=== PATIENT | female | born 1940 | race African-American/Black ===

== ENCOUNTER 2020-11-28 14:08 | Emergency (ER) | payer OTHER ==
[~2020-11-28] VITALS: Ht 175.3 cm; Wt 72.6 kg
[2020-11-28] MEDS ORDERED: ACETAMINOPHEN ES 500 MG TABLET PO ONE (14:30)
[2020-11-28 14:49] LABS: BASOPHILS % (AUTO) 0.6 % (0.0-2.0); EOSINOPHILS # (AUTO) 0.1 K/uL (0.0-0.7); EOSINOPHILS % (AUTO) 1.7 % (0.0-7.0); HEMATOCRIT 37.6 % (31.2-41.9); HEMOGLOBIN 12.2 g/dL (10.9-14.3); LYMPHOCYTES # (AUTO) 1.1 K/uL (20.0-40.0); LYMPHOCYTES % (AUTO) 15.2 % (20.5-51.5); MEAN CORPUSCULAR HEMOGLOBIN 29.3 uug (24.7-32.8); MEAN CORPUSCULAR HGB CONC 33 g/dL (32.3-35.6); MEAN CORPUSCULAR VOLUME 90.2 fL (75.5-95.3); MONOCYTES # (AUTO) 0.5 K/uL (2.0-10.0); MONOCYTES % (AUTO) 6.6 % (0.0-11.0); NEUTROPHILS # (AUTO) 5.7 K/uL (1.8-8.9); NEUTROPHILS % (AUTO) 75.9 % (38.5-71.5); PLATELET COUNT (AUTO) 711 K/uL (179-408); RED BLOOD CELL COUNT(AUTO) 4.17 MIL/uL (3.63-4.92); WHITE BLOOD COUNT (AUTO) 7.5 K/uL (3.8-11.8)
[2020-11-28] MEDS ORDERED: ACETAMINOPHEN ES 500 MG TABLET ONE (14:51)
[2020-11-28 14:56] LABS: CARBON DIOXIDE 27 mmol/L (21-32); CHLORIDE 105 mmol/L (98-107); CREATININE 0.6 mg/dL (0.6-1.3); GLUCOSE 103 mg/dL (74-106); UREA NITROGEN, BLOOD 11 mg/dL (7-18)
[2020-11-28 15:01] LABS: ALANINE AMINOTRANSFERASE 18 U/L (14-59); ALKALINE PHOSPHATASE 107 U/L (50-136); ASPARTATE AMINOTRANSFERASE 19 U/L (15-37); BILIRUBIN,DIRECT 0.1 mg/dL (0.0-0.2); BILIRUBIN,TOTAL 0.3 mg/dL (0.2-1.0); TOTAL PROTEIN, SERUM 6.7 g/dL (6.4-8.2)
== END 2020-11-28 16:15 | disposition home or self-care (01) ==
LOC: ER 14:08
DX: S00.83XA Contusion of other part of head, initial encounter (principal); W01.0XXA Fall on same level from slipping, tripping and stumbling without subsequent striking against object, initial encounter; Y92.481 Parking lot as the place of occurrence of the external cause; Z88.0 Allergy status to penicillin; Z88.2 Allergy status to sulfonamides; Z96.641 Presence of right artificial hip joint; D47.3 Essential (hemorrhagic) thrombocythemia; M50.30 Other cervical disc degeneration, unspecified cervical region; M48.02 Spinal stenosis, cervical region
CPT/HCPCS: 36415; 70030-TC; 70450; 70486; 71045; 72125; 85025; 93005; A4663; A9150

== ENCOUNTER 2024-05-09 13:51 | Emergency (ER) | payer OTHER ==
[~2024-05-09] VITALS: Ht 175.3 cm; Wt 68.0 kg
[2024-05-09 14:01] VITALS: O2SAT 95
== END 2024-05-09 14:43 | disposition home or self-care (01) ==
LOC: ER 13:52
DX: S30.0XXA Contusion of lower back and pelvis, initial encounter (principal); D75.839 Thrombocytosis, unspecified; Z96.641 Presence of right artificial hip joint; Z88.0 Allergy status to penicillin; Z88.2 Allergy status to sulfonamides; Z88.5 Allergy status to narcotic agent; W18.39XA Other fall on same level, initial encounter; Y93.89 Activity, other specified; Y92.89 Other specified places as the place of occurrence of the external cause; Y99.8 Other external cause status
CPT/HCPCS: A4606; A4663

== ENCOUNTER 2024-10-10 11:09 | Inpatient (IN) | payer OTHER ==
[~2024-10-10] VITALS: Ht 175.3 cm; Wt 58.5 kg
[2024-10-10 12:15] LABS: BASOPHILS % (AUTO) 0.8 % (0.0-2.0); EOSINOPHILS # (AUTO) 0.1 K/uL (0.0-0.7); EOSINOPHILS % (AUTO) 1.4 % (0.0-7.0); HEMATOCRIT 34.5 % (31.2-41.9); HEMOGLOBIN 11.7 g/dL (10.9-14.3); LYMPHOCYTES # (AUTO) 1.1 K/uL (0.8-4.8); LYMPHOCYTES % (AUTO) 17.6 % (20.5-51.5); MEAN CORPUSCULAR HEMOGLOBIN 29.9 uug (24.7-32.8); MEAN CORPUSCULAR HGB CONC 34 g/dL (32.3-35.6); MEAN CORPUSCULAR VOLUME 87.9 fL (75.5-95.3); MONOCYTES # (AUTO) 0.5 K/uL (0.1-1.30); MONOCYTES % (AUTO) 8.1 % (0.0-11.0); NEUTROPHILS # (AUTO) 4.6 K/uL (1.8-8.9); NEUTROPHILS % (AUTO) 72.1 % (38.5-71.5); PLATELET COUNT (AUTO) 651 K/uL (179-408); RED BLOOD CELL COUNT(AUTO) 3.92 MIL/uL (3.63-4.92); RED CELL DISTRIBUTION WIDTH 16.6 % (12.3-17.7); WHITE BLOOD COUNT (AUTO) 6.3 K/uL (3.8-11.8)
[2024-10-10 12:17] LABS: DIFFERENTIAL COMMENT 1
[2024-10-10 12:25] LABS: CALCIUM 9.2 mg/dL (8.5-10.1); CARBON DIOXIDE 30 mmol/L (21-32); CHLORIDE 102 mmol/L (98-107); CREATININE 0.5 mg/dL (0.6-1.3); GLUCOSE 95 mg/dL (74-106); POTASSIUM 3.7 mmol/L (3.5-5.1); SODIUM SERUM 139 mmol/L (136-145); UREA NITROGEN, BLOOD 9 mg/dL (7-18)
[2024-10-10 12:30] LABS: ALANINE AMINOTRANSFERASE 18 U/L (14-59); ALBUMIN 3.4 g/dL (3.4-5.0); ALKALINE PHOSPHATASE 77 U/L (50-136); ASPARTATE AMINOTRANSFERASE 25 U/L (15-37); BILIRUBIN,DIRECT 0.2 mg/dL (0.0-0.2); BILIRUBIN,TOTAL 0.5 mg/dL (0.2-1.0); LIPASE 23 U/L (16-77); TOTAL PROTEIN, SERUM 6.6 g/dL (6.4-8.2)
[2024-10-10] MEDS: IV NS 1000 ML 1,000 ML IV ONE (12:32)
[2024-10-10] MEDS ORDERED: METOCLOPRAMIDE HCL 10 MG/2 ML VIAL ONE (13:39)
[2024-10-10] MEDS: METOCLOPRAMIDE HCL 10 MG/2 ML VIAL IV ONE (13:41)
[2024-10-10 14:05] LABS: *BILIRUBIN,URIN NEGATIVE (NEGATIVE); *BLOOD, URINE NEGATIVE (NEGATIVE); *CLARITY,URINE CLEAR (CLEAR); *COLOR,URINE YELLOW (YELLOW); *KETONES,URINE NEGATIVE (NEGATIVE); *PROTEIN,URINE NEGATIVE (NEGATIVE); *UROBILINOGEN,URINE 0.2 E.U./dl (NORMAL); LEUKOCYTE ESTERASE ,URINE TRACE (NEGATIVE); NITRITE, URINE NEGATIVE (NEGATIVE); UGLUCOSE NEGATIVE (NEGATIVE)
[2024-10-10 14:07] LABS: BACTERIA,URINE FEW /HPF (NONE SEEN); SQUAMOUS EPITHELIAL CELL,UR FEW /HPF (NONE SEEN)
[2024-10-10] MEDS ORDERED: MORPHINE SULFATE 2 MG/1 ML DISP.SYRIN IV PRN (16:30)
[2024-10-10] MEDS ORDERED: REMEDY ESSENTIAL ZINC PASTE 113 GM TP PRN (16:30)
[2024-10-10] MEDS ORDERED: IV NORMAL SALINE 250 ML IV ONE (16:56)
[2024-10-10] MEDS ORDERED: IOHEXOL 300MG/ML 100 ML INFUS..BTL ONE (16:56)
[2024-10-10] MEDS ORDERED: DIATR MEGLU/DIATRIZOATE SODIUM 30 ML BOTTLE ONE (16:56)
[2024-10-10] MEDS ORDERED: SWABABLE VALVE TRANSFER SET EA MC ONE (16:56)
[2024-10-10 17:03] VITALS: BP 128/81
[2024-10-10] MEDS: CEphaleXIN 250 MG CAPSULE PO SCH (17:50)
[2024-10-10] MEDS: IV D5 1/2 NS 1000 ML 1,000 ML IV PRN (18:32)
[2024-10-10 19:20] VITALS: BP 126/60; TEMP 98.8; O2SAT 97
[2024-10-10] MEDS: ACETAMINOPHEN 325 MG TABLET PO PRN (21:47)
[2024-10-10] MEDS: ENOXAPARIN SODIUM 40 MG/0.4 ML DISP.SYRIN SQ SCH (21:49)
[2024-10-11 06:10] LABS: BASOPHILS % (AUTO) 0.7 % (0.0-2.0); EOSINOPHILS # (AUTO) 0.2 K/uL (0.0-0.7); EOSINOPHILS % (AUTO) 2.9 % (0.0-7.0); HEMATOCRIT 35.4 % (31.2-41.9); HEMOGLOBIN 11.8 g/dL (10.9-14.3); LYMPHOCYTES # (AUTO) 1.1 K/uL (0.8-4.8); LYMPHOCYTES % (AUTO) 19.9 % (20.5-51.5); MEAN CORPUSCULAR HEMOGLOBIN 29.5 uug (24.7-32.8); MEAN CORPUSCULAR HGB CONC 33 g/dL (32.3-35.6); MEAN CORPUSCULAR VOLUME 88.6 fL (75.5-95.3); MONOCYTES # (AUTO) 0.4 K/uL (0.1-1.30); MONOCYTES % (AUTO) 7.3 % (0.0-11.0); NEUTROPHILS # (AUTO) 3.7 K/uL (1.8-8.9); NEUTROPHILS % (AUTO) 69.2 % (38.5-71.5); PLATELET COUNT (AUTO) 563 K/uL (179-408); RED BLOOD CELL COUNT(AUTO) 3.99 MIL/uL (3.63-4.92); RED CELL DISTRIBUTION WIDTH 16.6 % (12.3-17.7); WHITE BLOOD COUNT (AUTO) 5.4 K/uL (3.8-11.8)
[2024-10-11 06:17] LABS: DIFFERENTIAL COMMENT 1
[2024-10-11 06:36] LABS: ALANINE AMINOTRANSFERASE 16 U/L (14-59); ALBUMIN 2.9 g/dL (3.4-5.0); ALKALINE PHOSPHATASE 64 U/L (50-136); ASPARTATE AMINOTRANSFERASE 22 U/L (15-37); BILIRUBIN,TOTAL 0.6 mg/dL (0.2-1.0); CALCIUM 8.9 mg/dL (8.5-10.1); CARBON DIOXIDE 27 mmol/L (21-32); CHLORIDE 107 mmol/L (98-107); CREATININE 0.5 mg/dL (0.6-1.3); GLUCOSE 76 mg/dL (74-106); MAGNESIUM 2.2 mg/dL (1.8-2.4); PHOSPHOROUS 3.4 mg/dL (2.5-4.9); POTASSIUM 3.5 mmol/L (3.5-5.1); SODIUM SERUM 143 mmol/L (136-145); TOTAL PROTEIN, SERUM 5.8 g/dL (6.4-8.2); UREA NITROGEN, BLOOD 8 mg/dL (7-18)
[2024-10-11 06:42] LABS: THYROID STIMULATING HORMONE 0.238 mIU/mL (0.358-3.740)
[2024-10-11] MEDS: PANTOPRAZOLE SODIUM 40 MG TABLET.DR PO SCH (06:42)
[2024-10-11 07:03] VITALS: BP 140/71; TEMP 97.3; O2SAT 98
[2024-10-11 07:09] LABS: CHOLESTEROL 142 mg/dL (<200); HDL CHOLESTEROL 82 mg/dL (40-60); TRIGLYCERIDES 30 MG/DL (30-150)
[2024-10-11] MEDS: ONDANSETRON 4 MG/2 ML VIAL IV PRN (07:16)
[2024-10-11 10:57] VITALS: BP 132/70; TEMP 97.9; O2SAT 99
[2024-10-11] MEDS ORDERED: ONDA8TAB13 PO (11:32)
[2024-10-11] MEDS ORDERED: AMLO10TA59 PO (11:32)
[2024-10-11] MEDS ORDERED: TRAM50TA2 PO (11:32)
[2024-10-11] MEDS ORDERED: TRIA0.2585 PO (11:32)
[2024-10-11] MEDS ORDERED: ENAL5TAB21 PO (11:32)
[2024-10-11] MEDS ORDERED: OMEP40CA21 PO (11:34)
[2024-10-11] MEDS ORDERED: SIMV-46 PO (11:34)
[2024-10-11] MEDS ORDERED: ANAG0.5C3 PO (11:35)
[2024-10-11] MEDS ORDERED: OXYB-58 PO (11:37)
[2024-10-11 15:31] VITALS: BP 111/69; TEMP 98; O2SAT 99
[2024-10-11 19:20] VITALS: BP 130/71; TEMP 98.7; O2SAT 96
[2024-10-12] MEDS ORDERED: ASPI81TA31 PO (00:14)
[2024-10-12 07:26] VITALS: BP 129/72; TEMP 97.6; O2SAT 93
[2024-10-12] MEDS ORDERED: CEPH250C PO (10:06)
[2024-10-12] MEDS ORDERED: ERYT250C69 PO (10:06)
[2024-10-12] MEDS ORDERED: ONDA8TAB13 PO (10:06)
[2024-10-12] MEDS ORDERED: SORB30SO2 PO (12:53)
[2024-10-12] MEDS ORDERED: LACT10SO7 PO (12:53)
== END 2024-10-12 14:55 | disposition home or self-care (01) | DRG 394 ==
LOC: ER 11:24 → MEDSURG3 16:16
PROVIDERS: ADMIT Nurse Practitioner Acute Care; ATTEND Nurse Practitioner Acute Care
DX: K95.89 Other complications of other bariatric procedure (principal); N39.0 Urinary tract infection, site not specified; Z68.1 Body mass index [BMI] 19.9 or less, adult; K31.84 Gastroparesis; Y92.89 Other specified places as the place of occurrence of the external cause; Y83.8 Other surgical procedures as the cause of abnormal reaction of the patient, or of later complication, without mention of misadventure at the time of the procedure; E86.0 Dehydration; D75.839 Thrombocytosis, unspecified; R63.4 Abnormal weight loss; Z90.49 Acquired absence of other specified parts of digestive tract; Z98.84 Bariatric surgery status; Z96.651 Presence of right artificial knee joint; Z96.641 Presence of right artificial hip joint; Z88.5 Allergy status to narcotic agent; Z88.2 Allergy status to sulfonamides; Z88.0 Allergy status to penicillin; K21.9 Gastro-esophageal reflux disease without esophagitis
CPT/HCPCS: 36415; 71045; 73110; 76700; 83605; 83690; 83735; 84100; 84443; 84550; 85025; 85651; 85730; 87077; 87086; A4606; A4663; G0378; J1650; J2405; J2765; J7040; Q9963; Q9967

== ENCOUNTER 2025-04-08 18:02 | Emergency (ER) | payer OTHER ==
[~2025-04-08] VITALS: Ht 172.7 cm; Wt 53.5 kg
[~2025-04-08 18:02] MED LIST: AMLO10TA59 PO; ANAG0.5C3 PO; ASPI81TA31 PO; CEPH250C PO; ENAL5TAB21 PO; ERYT250C69 PO; LACT10SO7 PO; OMEP40CA21 PO; ONDA8TAB13 PO; OXYB-58 PO; SIMV-46 PO; SORB30SO2 PO; TRAM50TA2 PO; TRIA0.2585 PO
[2025-04-08] MEDS ORDERED: TRIA0.252 PO (18:38)
[2025-04-08] MEDS ORDERED: AZIT250T13 PO (18:38)
[2025-04-08] MEDS ORDERED: CLOT15CR27 TP (18:38)
[2025-04-08 19:23] LABS: PLATELET COUNT (AUTO) 718 K/uL (179-408); RED BLOOD CELL COUNT(AUTO) 4.33 MIL/uL (3.63-4.92); RED CELL DISTRIBUTION WIDTH 16.2 % (12.3-17.7); WHITE BLOOD COUNT (AUTO) 7.1 K/uL (3.8-11.8)
[2025-04-08 19:26] LABS: *BILIRUBIN,URIN 1+ (NEGATIVE); *BLOOD, URINE 1+ (NEGATIVE); *COLOR,URINE YELLOW (YELLOW); *KETONES,URINE NEGATIVE (NEGATIVE); *PROTEIN,URINE 1+ (NEGATIVE); *UROBILINOGEN,URINE 0.2 E.U./dl (NORMAL); LEUKOCYTE ESTERASE ,URINE 3+ (NEGATIVE); NITRITE, URINE NEGATIVE (NEGATIVE); UGLUCOSE NEGATIVE (NEGATIVE)
[2025-04-08] MEDS ORDERED: HYDROMORPHONE 1 MG/1 ML DISP.SYRIN ONE (19:29)
[2025-04-08] MEDS ORDERED: ONDANSETRON 4 MG/2 ML VIAL ONE (19:30)
[2025-04-08 19:31] LABS: *CLARITY,URINE SLIGHTLY CLOUDY (CLEAR)
[2025-04-08 19:33] LABS: CREATININE 0.8 mg/dL (0.6-1.3); SODIUM SERUM 143 mmol/L (136-145); UREA NITROGEN, BLOOD 14 mg/dL (7-18)
[2025-04-08 19:38] LABS: ASPARTATE AMINOTRANSFERASE 18 U/L (15-37); TOTAL PROTEIN, SERUM 7.3 g/dL (6.4-8.2)
[2025-04-08] MEDS: HYDROMORPHONE 1 MG/1 ML DISP.SYRIN IV ONE (19:40)
[2025-04-08] MEDS: ONDANSETRON 4 MG/2 ML VIAL IV ONE (19:40)
[2025-04-08] MEDS: IV NORMAL SALINE 1000 ML BAG IV ONE ×2 (19:40→22:27)
[2025-04-08 19:49] LABS: SQUAMOUS EPITHELIAL CELL,UR MANY /HPF (NONE SEEN)
[2025-04-08] MEDS ORDERED: IV NORMAL SALINE 250 ML IV ONE (19:53)
[2025-04-08] MEDS ORDERED: IOHEXOL 300MG/ML 100 ML INFUS..BTL ONE (19:54)
[2025-04-08] MEDS ORDERED: SWABABLE VALVE TRANSFER SET EA MC ONE (19:54)
[2025-04-08] MEDS ORDERED: NITROFURANTOIN/NITROFURAN MAC 100 MG CAPSULE PO ONE ×2 (20:00→20:27)
[2025-04-08] MEDS ORDERED: CEFTRIAXONE /D5W 50ML IVPB **ER PYXIS IV ONE (20:47)
[2025-04-09 00:17] VITALS: BP 151/83; O2SAT 96
== END 2025-04-09 00:17 | disposition short-term general hospital (02) ==
LOC: ER 18:11
DX: K86.89 Other specified diseases of pancreas (principal); R10.13 Epigastric pain; R11.2 Nausea with vomiting, unspecified; E86.0 Dehydration; R63.4 Abnormal weight loss; Z79.899 Other long term (current) drug therapy; Z87.440 Personal history of urinary (tract) infections; Z88.0 Allergy status to penicillin; Z88.2 Allergy status to sulfonamides; Z88.5 Allergy status to narcotic agent; Z88.7 Allergy status to serum and vaccine; Z90.49 Acquired absence of other specified parts of digestive tract; Z96.649 Presence of unspecified artificial hip joint; Z98.84 Bariatric surgery status; Z98.891 History of uterine scar from previous surgery; Z88.8 Allergy status to other drugs, medicaments and biological substances; Z68.1 Body mass index [BMI] 19.9 or less, adult
CPT/HCPCS: 99291; 74177; 96365; 96375; 71045; 96361; 80076; 80048; 81001; 83690; 85025; 87186; 87086; 87077; 84484 ×2; 36415; 93005; 99292; J0696; J2405; Q9967; J1171; J7040 ×2; A4606; A4663